=== PATIENT | male | born 1950 | race Two or more races ===

== ENCOUNTER 2024-05-19 08:19 | Inpatient (IN) | payer OTHER ==
[~2024-05-19] VITALS: Ht 177.8 cm; Wt 77.4 kg
[2024-05-19] VITALS (11 sets, daily range): BP systolic 60–155; BP diastolic 55–143; PULSE 55–65; RESP 14–19; TEMP 97.4–98; O2SAT 93–99
[2024-05-19] MEDS: ACCU-CHEK COMFORT CURVE STRIP VI ONE (07:00)
[~2024-05-19 08:19] MED LIST: ALPR0.5T7 PO; ATEN50TA PO; ATOR-47 PO; FLUO-125 PO; FLUO0.05 EX; GLIP10TA9 PO; LISI40TA16 PO; METF-370 PO; SITA100T7 PO
[2024-05-19] MEDS: TRANEXAMIC ACID 20 ML ONE (08:30)
[2024-05-19] MEDS: EPINEPHrine HCL 1 MG/1 ML AMP ONE (08:30)
[2024-05-19] MEDS: VANCOMYCIN HCL 1000 MG VL ONE (08:32)
[2024-05-19] MEDS: KETOROLAC TROMETH 30 MG/ML 1ML VIAL ONE (08:32)
[2024-05-19] MEDS: ceFAZolin 2 GM/D5W100ml 100 ML IV ONE (08:40)
[2024-05-19] MEDS: CELECOXIB 100 MG CAP PO ONE (09:20)
[2024-05-19] MEDS: PREGABALIN CAPSULE 75 MG CAP PO ONE (09:20)
[2024-05-19] MEDS: TETRACAINE 1% INJ 2 ML VIAL IJ ONE (09:20)
[2024-05-19] MEDS: ACETAMINOPHEN IV 1000 MG/100ML (10MG/ML) IV ONE (09:20)
[2024-05-19] MEDS ORDERED: MIDAZOLAM HCL 2MG/2ML 2ml VIAL (1mg/ml) ONE (09:22)
[2024-05-19] MEDS ORDERED: MORPHINE SULF PF 5 MG/10 ML VIAL ONE (09:22)
[2024-05-19] MEDS ORDERED: fentaNYL CITRATE 100 MCG/2 ML VL ONE (09:22)
[2024-05-19] MEDS ORDERED: ONDANSETRON HCL 4 MG/2 ML VIAL IV PRN ×2 (09:30→11:00)
[2024-05-19] MEDS ORDERED: hydrALAZINE HCL 20 MG/ML VL IV PRN (09:30)
[2024-05-19] MEDS ORDERED: DexAMETHasone SOD PHOS 10MG/1ML VIAL INJ IV PRN (09:30)
[2024-05-19] MEDS ORDERED: NALOXONE HCL 0.4 MG/ML VIAL IV PRN (09:30)
[2024-05-19] MEDS ORDERED: ePHEDrine SULFATE 50 MG/ML AMP IV PRN (09:30)
[2024-05-19] MEDS ORDERED: MIDAZOLAM HCL 2MG/2ML 2ml VIAL (1mg/ml) IV PRN (09:30)
[2024-05-19] MEDS ORDERED: HYDROmorphone HCL 2 MG/ML VL/or syr IV PRN ×2 (09:30→11:00)
[2024-05-19] MEDS ORDERED: DexAMETHasone SOD PHOS 10MG/1ML VIAL INJ ONE (09:56)
[2024-05-19] MEDS ORDERED: PROPOFOL 10 MG/ML 20 ML IV ONE (09:56)
[2024-05-19] MEDS ORDERED: KETAMINE 50mg/ML 1ml syringe ONE (10:01)
[2024-05-19] MEDS: BUPIVACAINE 0.25% INJ 50ML VIAL ONE (10:30)
[2024-05-19] MEDS ORDERED: ALPRAZolam 0.5 MG TAB PO PRN (11:00)
[2024-05-19] MEDS ORDERED: DEXTROSE (50%) 50ML SYRG IV PRN (11:00)
[2024-05-19] MEDS: LACTATED RINGER'S 1,000 ML IV SCH (11:00)
[2024-05-19] MEDS ORDERED: NITROGLYCERIN 0.4 MG SL TAB SL PRN (11:00)
[2024-05-19] MEDS ORDERED: MORPHINE SULFATE INJ 2 MG/ml SYRG IV PRN (11:00)
[2024-05-19] MEDS: LISINOPRIL 20 MG TAB PO SCH (11:30)
[2024-05-19] MEDS: ACCU-CHEK COMFORT CURVE STRIP VI SCH (11:30)
[2024-05-19] MEDS: ATENOLOL 25 MG TAB PO SCH (11:30)
[2024-05-19 12:32] LABS: Alanine Aminotransferase 21 U/L (7-40); Albumin 4.1 g/dL (3.2-4.8); Alkaline Phosphatase 78 U/L (46-116); Anion Gap 6 (5-15); Aspartate Aminotransferase 17 U/L (13-40); BUN/Creatinine Ratio 8.7 (10.0-20.0); Blood Urea Nitrogen 11 mg/dL (9-23); Calcium 9.2 mg/dL (8.7-10.4); Carbon Dioxide 26 mmol/L (20-31); Chloride 107 mmol/L (98-107); Glucose 229 mg/dL (74-106); Magnesium 1.7 mg/dL (1.6-2.6); Potassium 4.6 mmol/L (3.5-5.1); Sodium 139 mmol/L (136-145)
[2024-05-19 12:33] LABS: Bilirubin, Total 0.4 mg/dL (0.2-1.0); Total Protein 6.2 g/dL (5.7-8.2)
[2024-05-19] MEDS: ceFAZolin 1GM/50ML 50 ML IV SCH (12:46)
[2024-05-19] MEDS: InsuLIN REG 1unit/0.01ml Soln (100units/ml) SC SCH (13:10)
[2024-05-19] MEDS ORDERED: HYDR-2792 PO (14:08)
[2024-05-19] MEDS ORDERED: PRED20TA2 PO (14:08)
[2024-05-19 16:42] LABS: Basophils # (auto) 0 10 ^3/uL (0-0.2); Basophils % (auto) 0.2 % (0.0-2.0); Eosinophils # (auto) 0 10 ^3/uL (0-0.8); Eosinophils % (auto) 0.4 % (0.0-7.0); Hematocrit 40.3 % (41.0-53.0); Hemoglobin 13.7 g/dL (13.5-17.5); Lymphocytes # (auto) 0.5 10 ^3/uL (0.4-5.4); Lymphocytes % (auto) 3.3 % (10.0-50.0); Mean Corpuscular Hemoglobin 31.2 pg (28.0-32.0); Mean Corpuscular Hgb Conc. 34.1 g/dL (32.0-36.0); Mean Corpuscular Volume 91.5 fL (80.0-100.0); Monocytes # (auto) 0.2 10 ^3/uL (0-1.3); Monocytes % (auto) 1.4 % (0.0-12.0); Neutrophils # (auto) 13.1 10 ^3/uL (1.6-8.6); Neutrophils % (auto) 94.7 % (37.0-80.0); Platelet Count (auto) 193 10^3/uL (140-450); Red Cell Distribution Width 14.3 % (11.8-14.3); White Blood Cell 13.8 10^3/uL (4.4-10.8)
[2024-05-19] MEDS: OXYCODONE W/ ACETAMINOPHEN 5/325MG TABLET PO PRN (18:05)
[2024-05-19] MEDS: metFORMIN HYDROCHLORIDE 500 MG TAB PO SCH (18:05)
[2024-05-19] MEDS: SODIUM CHLOR 0.9% PF (SALINE LOCK) 10ML VIAL/SYR IV SCH (18:23)
[2024-05-19] MEDS: ATORVASTATIN 20 MG TAB PO SCH (21:46)
[2024-05-20] VITALS (16 sets, daily range): BP systolic 97–133; BP diastolic 55–73; PULSE 57–80; RESP 16–19; TEMP 97.5–98; O2SAT 90–100
[2024-05-20 07:13] LABS: Alanine Aminotransferase 16 U/L (7-40); Albumin 3.7 g/dL (3.2-4.8); Alkaline Phosphatase 45 U/L (46-116); Anion Gap 10 (5-15); Aspartate Aminotransferase 18 U/L (13-40); BUN/Creatinine Ratio 15.2 (10.0-20.0); Bilirubin, Total 0.8 mg/dL (0.2-1.0); Blood Urea Nitrogen 23 mg/dL (9-23); Calcium 8.7 mg/dL (8.7-10.4); Carbon Dioxide 19 mmol/L (20-31); Chloride 102 mmol/L (98-107); Glucose 222 mg/dL (74-106); Potassium 4.7 mmol/L (3.5-5.1); Total Protein 5.6 g/dL (5.7-8.2)
[2024-05-20 07:16] LABS: Sodium 131 mmol/L (136-145)
[2024-05-20 07:18] LABS: Hematocrit 30.6 % (41.0-53.0); Hemoglobin 10.4 g/dL (13.5-17.5)
[2024-05-20] MEDS: ONDANSETRON HCL 4 MG/2 ML VIAL IV ONE (07:47)
[2024-05-20] MEDS: CEFEPIME 1GM/ 50ML 50 ML IV ONE (07:47)
[2024-05-20] MEDS: FLUoxetine HCL 20 MG CAP PO SCH (10:24)
[2024-05-20] MEDS: ENOXAPARIN SOD 40 MG/0.4 ML SYRINGE SC SCH (10:25)
[2024-05-20] MEDS: SODIUM CHLORIDE 0.9% 1,000 ML IV ONE (11:45)
== END 2024-05-20 14:05 | disposition home health service (06) | DRG 470 ==
LOC: SUR 08:19 → TELE 11:01 → TELE-CENTR 12:05
PROVIDERS: ADMIT Anesthesiology; ATTEND Orthopaedic Surgery Adult Reconstructive Orthopaedic Surgery
PROC: 8E0YXBF Computer Assisted Procedure of Lower Extremity, With Fluoroscopy (ICD-10-PCS; 2024-05-19)
PROC: 0SRB0JZ Replacement of Left Hip Joint with Synthetic Substitute, Open Approach (ICD-10-PCS; principal; 2024-05-19 09:26)
DX: M16.12 Unilateral primary osteoarthritis, left hip (principal); N17.9 Acute kidney failure, unspecified; I10 Essential (primary) hypertension; E78.5 Hyperlipidemia, unspecified; E11.9 Type 2 diabetes mellitus without complications; Z88.2 Allergy status to sulfonamides; Z79.899 Other long term (current) drug therapy
CPT/HCPCS: 36415; 72170; 73502; 80053; 82962; 83036; 83735; 85014; 85018; 86850; 86900; 86901; 97163; G0378; J0131; J0171; J1100; J1815; J1885; J2250; J2704; J3490